=== PATIENT | female | born 1995 | race Two or more races ===

== ENCOUNTER → 2019-11-09 | Outpatient (CLI) | payer OTHER | END | disposition home or self-care (01) | LOC: PRENATAL 11-05 13:30 | DX: O35.3XX0 Maternal care for (suspected) damage to fetus from viral disease in mother, not applicable or unspecified (principal) ==

== ENCOUNTER 2020-03-08 12:37 | Inpatient (IN) | payer OTHER | END 2020-03-12 09:42 | disposition home or self-care (01) | DRG 805 | LOC: OBS/DEL 12:37 → LDR 14:51 → MEDJ 03-09 04:59 → LDR 03-09 05:18 → OB/GYN 03-11 15:40 | PROVIDERS: ADMIT Obstetrics & Gynecology | PROC: 10E0XZZ Delivery of Products of Conception, External Approach (ICD-10-PCS; principal; 2020-03-08) | PROC: 0W8NXZZ Division of Female Perineum, External Approach (ICD-10-PCS; 2020-03-08) | PROC: 4A1HXFZ Monitoring of Products of Conception, Cardiac Rhythm, External Approach (ICD-10-PCS; 2020-03-08) | DX: O98.52 Other viral diseases complicating childbirth (principal); U07.1 COVID-19; Z37.0 Single live birth; Z3A.39 39 weeks gestation of pregnancy ==